=== PATIENT | female | born 1945 | race Caucasian/White ===

== ENCOUNTER 2019-08-29 03:45 | Outpatient (CLI) | payer MEDICARE ==
[~2019-08-29 03:45] MED LIST: HORMONE CREAM TOP; THY60T PO
== END 2019-08-29 23:59 | disposition home or self-care (01) ==
LOC: DIABETIC 03:45
PROVIDERS: ATTEND Family Medicine
DX: E11.65 Type 2 diabetes mellitus with hyperglycemia (principal); Z79.84 Long term (current) use of oral hypoglycemic drugs; Z79.899 Other long term (current) drug therapy
CPT/HCPCS: G0108

== ENCOUNTER 2019-10-11 04:37 | Outpatient (CLI) | payer MEDICARE | END 2019-10-11 23:59 | disposition home or self-care (01) | LOC: DIABETIC 04:37 | PROVIDERS: ATTEND Family Medicine | DX: E11.65 Type 2 diabetes mellitus with hyperglycemia (principal); Z79.84 Long term (current) use of oral hypoglycemic drugs | CPT/HCPCS: G0108 ==